=== PATIENT | female | born 1975 | race Caucasian/White ===

== ENCOUNTER 2017-01-04 05:49 | Inpatient (IN) | payer SELFPAY ==
[~2017-01-04] VITALS: Ht 160 cm; Wt 85.7 kg
[~2017-01-04 05:49] MED LIST: LACTATED RINGERS 1,000 ML IV SCH
[2017-01-04 06:32] LABS: BASOPHILS % 0.5 % (0.0-2.0); EOSINOPHILS % 6.4 % (0.0-5.0); HEMATOCRIT. 36.9 % (36.0-48.0); HEMOGLOBIN. 12.4 g/dL (12.0-16.0); LYMPHOCYTES % 33.4 % (20.0-50.0); MEAN CORPUSCULAR HEMOGLOBIN 28.2 pg (28.0-32.0); MEAN CORPUSCULAR HGB CONC 33.7 g/dL (31.0-37.0); MEAN CORPUSCULAR VOLUME 83.9 fL (81.0-99.0); MEAN PLATELET VOLUME 8.3 fl (7.4-10.4); MONOCYTES % 6.4 % (2.0-8.0); NEUTROPHILS % 53.3 % (40.0-76.0); PLATELET 357 x1000/uL (130-400); RED CELL DISTRIBUTION WIDTH 14.9 % (11.6-14.6); WHITE BLOOD COUNT 10.9 x1000/uL (4.5-11.0)
[2017-01-04 06:39] LABS: CLARITY URINE CLEAR (CLEAR); COLOR URINE YELLOW (YELLOW); GLUCOSE URINE NEGATIVE (NEGATIVE); KETONES URINE NEGATIVE (NEGATIVE); LEUKOCYTE ESTERASE URINE NEGATIVE (NEGATIVE); NITRITE URINE NEGATIVE (NEGATIVE); OCCULT BLOOD URINE NEGATIVE (NEGATIVE); PH URINE 6.5 (4.5-8.0); PROTEIN URINE NEGATIVE (NEGATIVE); SPECIFIC GRAVITY URINE 1.022 (1.005-1.030)
[2017-01-04 06:44] LABS: UCG SCREEN NEGATIVE
[2017-01-04 07:07] LABS: PARTIAL THROMBOPLASTIN TIME 27.8 sec (24.0-34.0); PROTHROMBIN TIME 10.4 sec
[2017-01-04] MEDS ORDERED: METHYLENE BLUE 1% VIAL 1ML ONE (07:07)
[2017-01-04] MEDS ORDERED: VASOPRESSIN 20 UNIT/ML 1ML ONE (07:14)
[2017-01-04] MEDS ORDERED: DEXT 5%/LACTATED RINGERS 1,000 ML IV SCH (07:42)
[2017-01-04] MEDS ORDERED: HYDROCODONE/ACETAMINOPHEN 5/325MG TABLET PO PRN (07:45)
[2017-01-04] MEDS ORDERED: FENTANYL CITRATE/PF 50MCG/ML 2ML VIAL ONE (07:52)
[2017-01-04] MEDS ORDERED: MIDAZOLAM HCL 2 MG/2 ML VIAL ONE (07:52)
[2017-01-04] MEDS ORDERED: HYDROMORPHONE HCL/PF 2MG/ML (OR) ONE (08:22)
[2017-01-04] MEDS ORDERED: LABETALOL HCL 20MG/4ML CARPUJECT IV PRN (08:30)
[2017-01-04] MEDS ORDERED: ONDANSETRON HCL 4MG/2ML VIAL IV PRN (08:30)
[2017-01-04] MEDS ORDERED: MEPERIDINE HCL/PF 25MG/ML CPJ IV PRN (08:30)
[2017-01-04] MEDS ORDERED: SUCCINYLCHOLINE CHLORIDE 200MG/10ML VIAL IV ONE (09:13)
[2017-01-04] MEDS ORDERED: PROPOFOL 200MG/20ML VIAL IV ONE (09:13)
[2017-01-04] MEDS ORDERED: GLYCOPYRROLATE 0.2 MG/ML 2ML VIAL ONE (09:13)
[2017-01-04] MEDS ORDERED: CEFAZOLIN SODIUM 1000MG/VIAL ONE (09:13)
[2017-01-04] MEDS ORDERED: ONDANSETRON HCL 4MG/2ML VIAL ONE (09:13)
[2017-01-04] MEDS ORDERED: SODIUM CHLORIDE 0.9% 10ML VIAL ONE (09:13)
[2017-01-04] MEDS ORDERED: DEXAMETHASONE 4MG/ML 1ML VIAL ONE (09:13)
[2017-01-04] MEDS ORDERED: NEOSTIGMINE METHYLSULFATE 1MG/ML 10 ML VIAL ONE (09:13)
[2017-01-04] MEDS ORDERED: ROCURONIUM BROMIDE 10MG/ML VIAL 5ML IV ONE (09:13)
[2017-01-04] MEDS ORDERED: LIDOCAINE HCL 1% 20ML VIAL (Pyxis) INJ ONE (09:13)
[2017-01-04] MEDS ORDERED: NALOXONE HCL 0.4 MG/ML 1ML VIAL ONE (09:29)
[2017-01-04] MEDS: HYDROMORPHONE HCL/PF 2MG/ML CPJ IV PRN ×3 (10:09→12:48)
[2017-01-04 15:00] VITALS: BP_SYST 105; BP_DIAS 63; BP_DIAS 67
[2017-01-04 16:00] VITALS: BP 105/67
[2017-01-04] MEDS: BETHANECHOL CHLORIDE 25 MG TABLET PO SCH (17:46)
[2017-01-04 20:09] VITALS: BP 116/72
[2017-01-05 00:41] VITALS: BP 107/63
[2017-01-05 05:14] VITALS: BP 108/70
[2017-01-05 06:20] LABS: BASOPHILS % 0.1 % (0.0-2.0); EOSINOPHILS % 0.1 % (0.0-5.0); HEMATOCRIT. 34.6 % (36.0-48.0); HEMOGLOBIN. 11.4 g/dL (12.0-16.0); LYMPHOCYTES % 17.8 % (20.0-50.0); MEAN CORPUSCULAR HEMOGLOBIN 27.9 pg (28.0-32.0); MEAN CORPUSCULAR HGB CONC 32.9 g/dL (31.0-37.0); MEAN CORPUSCULAR VOLUME 84.8 fL (81.0-99.0); MONOCYTES % 7.9 % (2.0-8.0); NEUTROPHILS % 74.1 % (40.0-76.0); PLATELET 310 x1000/uL (130-400); RED BLOOD CELL COUNT 4.08 mill/uL (4.2-5.4); RED CELL DISTRIBUTION WIDTH 14.3 % (11.6-14.6); WHITE BLOOD COUNT 15.5 x1000/uL (4.5-11.0)
[2017-01-05 08:00] VITALS: BP 110/83
[2017-01-05] MEDS: BETHANECHOL CHLORIDE 25 MG TABLET PO SCH ×2 (08:51→12:31)
[2017-01-05] MEDS ORDERED: ACETAMINOPHEN 500MG TABLET PO PRN (09:45)
[2017-01-05 12:00] VITALS: BP 114/72
[2017-01-05 15:56] VITALS: BP 116/80
[2017-01-05 16:00] VITALS: BP 116/80
== END 2017-01-05 16:30 | disposition home or self-care (01) | DRG 519 ==
LOC: OR 05:49 → 6EST 05:50
PROVIDERS: ADMIT Obstetrics & Gynecology Obstetrics; ATTEND Obstetrics & Gynecology Obstetrics
PROC: 0UB90ZZ Excision of Uterus, Open Approach (ICD-10-PCS; principal; 2017-01-04 07:30)
DX: D25.9 Leiomyoma of uterus, unspecified (principal); N92.0 Excessive and frequent menstruation with regular cycle
CPT/HCPCS: 36415; 81003; 81025; 85025; 85610; 85730; 86850; 86900; 88305; A4216; J0330; J0690; J1100; J1170; J2250; J2310; J2405; J2704; J2710; J3010; J3490; J7030; J7120; J7121; Q9968